=== PATIENT | male | born 1960 | race Caucasian/White ===

== ENCOUNTER 2024-09-18 20:53 | Emergency (ER) | payer MEDICAID ==
[~2024-09-18] VITALS: Ht 177.8 cm; Wt 72.6 kg
[2024-09-18] MEDS ORDERED: Morphine Sulfate 4 MG/1 ML Injection IV ONE (22:10)
[2024-09-18] MEDS ORDERED: Ketorolac Tromethamine 15mg Vial IV ONE (22:10)
[2024-09-18] MEDS ORDERED: Diazepam 5 MG / ML 2ML SYR IV ONE (22:10)
[2024-09-18 22:22] LABS: BASOPHILS ABSOLUTE AUTO 0.06 K/mm3 (0.00-0.23); BASOPHILS PERCENT AUTO 1 % (0-2); EOSINOPHILS ABSOLUTE AUTO 0.06 K/mm3 (0.00-0.68); EOSINOPHILS PERCENT AUTO 1 % (0-6); Hematocrit 43.9 % (37.0-53.0); IMMATURE GRAN ABSOLUTE AUTO 0.03 K/mm3 (0.00-0.10); IMMATURE GRAN PERCENT AUTO 0 % (0-1); LYMPHOCYTES ABSOLUTE AUTO 1.39 K/mm3 (0.84-5.20); LYMPHOCYTES PERCENT AUTO 15 % (21-46); MONOCYTES ABSOLUTE AUTO 0.61 K/mm3 (0.16-1.47); MONOCYTES PERCENT AUTO 7 % (4-13); Mean Corpuscular HGB 31.6 pg (26.0-34.0); Mean Corpuscular HGB Conc 34.2 g/dL (31.5-36.5); Mean Corpuscular Volume 92 fL (80-100); Mean Platelet Volume 9.8 fL (9.1-12.4); NEUTROPHILS ABSOLUTE AUTO 6.98 K/mm3 (1.96-9.15); NEUTROPHILS PERCENT AUTO 76 % (41-73); Platelet Count 408 K/mm3 (150-400); RDW Coefficient Variation 12.2 % (11.7-14.2); RDW Standard Deviation 41.8 fL (35.1-46.3); Red Blood Cell Count 4.75 M/mm3 (4.30-5.90); White Blood Cell Count 9.13 K/mm3 (4.00-11.30)
[2024-09-18 22:41] LABS: Albumin, Blood 3.6 g/dL (3.4-5.0); Bilirubin, Total 0.3 mg/dL (0.1-1.0); Calcium, Blood 9.5 mg/dL (8.5-10.1); Creatinine, Blood 1.16 mg/dL (0.60-1.20); Globulin, Blood 3.5 g/dL (2.2-4.0); Magnesium, Blood 2.2 mg/dL (1.6-2.4); Potassium, Blood 4.9 mmol/L (3.5-5.5); Total Protein, Blood 7.1 g/dL (6.4-8.2)
[2024-09-18] MEDS ORDERED: Robaxin750 MG PO (23:54)
[2024-09-18] MEDS ORDERED: Voltaren100 GM TOP (23:54)
[2024-09-19] MEDS ORDERED: RX Prepack 6 Tabs Oxycodone 5mg UD ONE (00:10)
[2024-09-19] MEDS ORDERED: OxyCODONE HCL 5 MG TAB PO ONE (00:10)
[2024-09-19] MEDS ORDERED: Methocarbamol 500 MG Tab PO ONE (00:10)
[2024-09-19] MEDS ORDERED: Ondansetron 4 MG SoluTab SL ONE (00:25)
[2024-09-19] MEDS ORDERED: RX Prepack 2 Tabs Ondansetron ODT 4MG UD ONE (00:25)
== END 2024-09-19 01:15 | disposition home or self-care (01) ==
LOC: ER 20:53
PROVIDERS: Student in an Organized Health Care Education/Training Program
DX: M54.50 Low back pain, unspecified (principal); G89.29 Other chronic pain
CPT/HCPCS: 72131; 80053; 83690; 83735; 85025; 96374; 96375; 99284-25; A9270; J1885; J2270; J3360